=== PATIENT | male | born 1980 | race Caucasian/White ===

== ENCOUNTER 2022-06-12 09:53 | Emergency (ER) | payer MEDICAID ==
[~2022-06-12] VITALS: Ht 170.2 cm; Wt 124.7 kg
[2022-06-12] MEDS ORDERED: COZAAR100 MG PO (10:56)
[2022-06-12] MEDS ORDERED: SPIRONOLACTONE25 MG PO (10:57)
[2022-06-12] MEDS ORDERED: FUROSEMIDE20 MG PO (10:57)
[2022-06-12] MEDS ORDERED: LAMICTAL200 MG PO (10:57)
[2022-06-12] MEDS ORDERED: HYDROXYZINE HCL25 MG PO (10:58)
[2022-06-12] MEDS ORDERED: TRAZODONE HCL100 MG PO (10:58)
[2022-06-12] MEDS ORDERED: MIRTAZAPINE30 MG PO (10:58)
[2022-06-12] MEDS ORDERED: METFORMIN HCL500 MG PO (10:59)
[2022-06-12] MEDS ORDERED: OXYCODONE HCL5 MG PO (11:00)
[2022-06-12] MEDS ORDERED: PENICILLIN V P500 MG PO (11:43)
[2022-06-12] MEDS ORDERED: HYDROCODON-ACE1 EA10 PO (11:43)
== END 2022-06-12 12:07 | disposition home or self-care (01) ==
LOC: ED 09:53
DX: K02.9 Dental caries, unspecified (principal); E11.9 Type 2 diabetes mellitus without complications; I10 Essential (primary) hypertension; Z87.891 Personal history of nicotine dependence; Z79.899 Other long term (current) drug therapy; Z79.84 Long term (current) use of oral hypoglycemic drugs
CPT/HCPCS: 99282

== ENCOUNTER 2022-06-30 11:20 | Emergency (ER) | payer MEDICAID ==
[~2022-06-30] VITALS: Ht 170.2 cm; Wt 124.7 kg
[~2022-06-30 11:20] MED LIST: COZAAR100 MG PO; FUROSEMIDE20 MG PO; HYDROCODON-ACE1 EA10 PO; HYDROXYZINE HCL25 MG PO; LAMICTAL200 MG PO; METFORMIN HCL500 MG PO; MIRTAZAPINE30 MG PO; OXYCODONE HCL5 MG PO; PENICILLIN V P500 MG PO; SPIRONOLACTONE25 MG PO; TRAZODONE HCL100 MG PO
--- OUTSIDE RECORDS SUMMARY | 2022-06-30 11:22 | XMS ---
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 PHONE: Unknown KJ PHAN Physician Bin Tripper Operator: [facility] PHONE: [phone] Mariela has no Care Guidelines for this patient. Diya VISIT COUNT (12 MO.) 2 [facility] TOTAL 2 NOTE: Visits indicate total known visits. 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
[2022-06-30] MEDS ORDERED: METRONIDAZOLE500 MG PO (18:10)
[2022-06-30] MEDS ORDERED: HYDROCODON-ACE1 EA10 PO (18:10)
[2022-06-30] MEDS ORDERED: PENICILLIN V P500 MG PO (18:10)
== END 2022-06-30 18:27 | disposition home or self-care (01) ==
LOC: ED 11:20
DX: K08.89 Other specified disorders of teeth and supporting structures (principal); E11.9 Type 2 diabetes mellitus without complications; I10 Essential (primary) hypertension; Z79.899 Other long term (current) drug therapy; Z79.84 Long term (current) use of oral hypoglycemic drugs
CPT/HCPCS: 99282